=== PATIENT | female | born 1955 ===

== ENCOUNTER 2021-04-12 02:46 | Inpatient (IN) | payer MEDICARE ==
[2021-04-12 03:16] VITALS: BMI 28.5
[2021-04-12] MEDS ORDERED: Calcium Carbonate 500 MG ChewTAB PO PRN (03:49)
[2021-04-12] MEDS ORDERED: Nitroglycerin 0.4 MG TAB (25 Tab Bottle) SL PRN (03:49)
[2021-04-12] MEDS ORDERED: Ondansetron PF 4 MG/2 ML Vial IVP PRN (03:49)
[2021-04-12] MEDS ORDERED: Ondansetron ODT 4 MG TAB PO PRN (03:49)
[2021-04-12] MEDS ORDERED: Enoxaparin Sodium 80 MG/0.8 ML SYRINGE SC SCH ×2 (04:15→09:00)
[2021-04-12] MEDS ORDERED: Sodium Chloride 0.9% 1,000 ML IV SCH ×2 (04:15→05:15)
[2021-04-12 05:18] LABS: Hemoglobin A1c 4.9 % (4.0-6.0)
[2021-04-12 05:31] LABS: Cardiac Risk 3.8 (Less than 4.5); Cholesterol 96 mg/dl (< 200 Desired); HDL Cholesterol 25 mg/dL (>60 Neg Risk); LDL Cholesterol, Calculated 56 mg/dL; Magnesium 1.9 mg/dL (1.6-2.6); Phosphorus 2.6 mg/dL (2.3-4.7); Triglycerides 73 mg/dL (Less than 150)
[2021-04-12 07:36] LABS: Anion Gap 8 mmol/L (10-20); BUN (Urea Nitrogen) 19 mg/dL (9.8-20.1); Calc. Creatinine Clearance 78 mL/min (70-130); Calcium 8.1 mg/dL (7.8-10.44); Carbon Dioxide 26 mmol/L (23-31); Chloride 112 mmol/L (98-107); Glucose 87 mg/dL (80-115); Potassium 3.7 mmol/L (3.5-5.1); Sodium 142 mmol/L (136-145)
[2021-04-12] MEDS: Acetaminophen 325 MG TAB PO PRN (15:15)
[2021-04-12 16:42] LABS: SARS-CoV-2 PCR by NAA Not Detected (NotDetected)
[2021-04-12] MEDS: Atorvastatin Calcium 20 MG TAB PO SCH (19:50)
[2021-04-13] MEDS ORDERED: Enoxaparin Sodium 40 MG/0.4 ML SYRINGE SC SCH (09:00)
[2021-04-13] MEDS ORDERED: Regadenoson 0.4 MG/5 ML SYRINGE ONE (12:06)
[2021-04-13] MEDS: Acetaminophen 325 MG TAB PO PRN (12:29)
[2021-04-13 13:30] LABS: #Basophils 0.1 thou/uL (0.0-0.2); #Eosinphils 0.2 thou/uL (0.0-0.7); #Monocytes 0.6 thou/uL (0.11-0.59); #Neutrophils 3.9 thou/uL (1.40-6.50); %Basophils 0.8 % (0.0-1.0); %Eosinophils 3.2 % (0.0-10.0); %Lymphocytes 29.5 % (21.0-51.0); %Monocytes 8.5 % (0.0-10.0); %Neutrophils 58.1 % (42.0-75.0); Hemoglobin 11.1 g/dL (12.0-16.0); Mean Corpuscular HGB CONC 33.4 g/dL (32.0-36.0); Mean Corpuscular Hemoglobin 32.5 pg (27.0-31.0); Mean Corpuscular Volume 97.3 fL (78.0-98.0); Mean Platelet Volume 6.4 fL (7.4-10.4); Platelet Count 198 thou/uL (130-400); RBC Distribution Width 13.3 % (11.5-14.5); White Blood Cell (WBC) Count 6.7 thou/uL (4.8-10.8)
[2021-04-13] MEDS ORDERED: Lisinopril/Hydrochlorothiazide 10 mg/12.5 mg Tablet PO SCH (18:30)
[2021-04-13] MEDS: Atorvastatin Calcium 20 MG TAB PO SCH (19:59)
[2021-04-14] MEDS ORDERED: Lisinopril/Hydrochlorothiazide 10 mg/12.5 mg Tablet PO SCH (09:00)
[2021-04-14] MEDS ORDERED: Lidocaine 1% (PF) 30 ML VIAL ONE (09:12)
[2021-04-14] MEDS ORDERED: Iopamidol 370 76% 100 ML VIAL ONE (09:13)
[2021-04-14] MEDS ORDERED: Fentanyl 100 MCG/2 ML VIAL ONE (11:01)
[2021-04-14] MEDS ORDERED: Midazolam HCl 2 mg/2 ml Vial ONE (11:01)
[2021-04-14] MEDS ORDERED: Nitroglycerin 0.4 MG TAB (25 Tab Bottle) SL PRN (11:34)
[2021-04-14] MEDS ORDERED: Acetaminophen/Codeine 30-300mg Tablet PO PRN ×2 (11:34)
[2021-04-14] MEDS ORDERED: Sodium Chloride 0.9% 200 ML IV PRN (11:34)
[2021-04-14 15:40] VITALS: BP 155/76; TEMP 97.9
== END 2021-04-14 17:03 | disposition home or self-care (01) | DRG 287 ==
LOC: 2SW 03:12 → OBSVTOIN 04-14 07:22
PROVIDERS: ADMIT Emergency Medicine; ATTEND Emergency Medicine
PROC: 4A023N7 Measurement of Cardiac Sampling and Pressure, Left Heart, Percutaneous Approach (ICD-10-PCS; principal; 2021-04-14)
PROC: B2111ZZ Fluoroscopy of Multiple Coronary Arteries using Low Osmolar Contrast (ICD-10-PCS; 2021-04-14)
PROC: B2151ZZ Fluoroscopy of Left Heart using Low Osmolar Contrast (ICD-10-PCS; 2021-04-14)
DX: I95.1 Orthostatic hypotension (principal); Z20.822 Contact with and (suspected) exposure to COVID-19; I10 Essential (primary) hypertension; E78.5 Hyperlipidemia, unspecified; J44.9 Chronic obstructive pulmonary disease, unspecified; R82.71 Bacteriuria; I25.6 Silent myocardial ischemia; Z79.899 Other long term (current) drug therapy
CPT/HCPCS: 36415; 78452; 80048; 80061; 83036; 83735; 84100; 84443; 84484; 85025; 90471; 90732; 93017; 93306; 93458; 96372; 97139; 99152; A9500; G0009; G0378; J1650; J2001; J2250; J2785; J3010; J7050; Q9967; U0003; U0005